=== PATIENT | female | born 1985 | race Caucasian/White ===

== ENCOUNTER 2022-08-03 14:27 | Inpatient (IN) | payer OTHER ==
[~2022-08-03] VITALS: Ht 160 cm; Wt 82.6 kg
[2022-08-04] MEDS ORDERED: NITROFURANTOIN100 M1 (01:53)
--- NOTE | 2022-08-04 10:38 | PR ---
[facility] [address] [place], [place] [address] Signed Progress Notes IP Datetime Report Generated by CPN: 08/04/2022 10:38 PROGRESS NOTES: [id number] Impression: Normal Progression of Labor Procedures: Artificial ROM Plan: Continue Present Management; Anticipate Vaginal Delivery VITAL SIGNS: [id number] Vital Signs: Reviewed; Within Normal Limits EXAM: [id number] Dilatation: 3.0 Effacement: 20 Station: -3 Contractions: irregular MEMBRANES: [id number] Membranes Status: Ruptured Comments: Contractions beginning to get stronger and more regular. would like Epidural later. FETUS A: [id number] FHR Baseline: 130 Variability: Moderate 6-25bpm Accelerations: 15X15 Presentation: Vertex FETUS B: [id number] Signing Physician: Gino Daniels MD Copies: ~ *Electronically Signed* 08/04/22 [facility] GINO DANIELS MD PATIENT NAME: TAMIKO CONTRERAS PROGRESS NOTE DATE OF : 85 PHYSICIAN: GINO DANIELS MD RPT #: [id number] REPORT IS CONFIDENTIAL AND NOT TO BE RELEASED WITHOUT AUTHORIZATION
--- NOTE | 2022-08-04 17:59 | PR ---
[facility] [address] [place], [place] [address] Signed Progress Notes IP Datetime Report Generated by CPN: 08/04/2022 17:59 PROGRESS NOTES: [id number] Impression: Arrest of Dilatation/Descent Procedures: Intrauterine Pressure Catheter Plan: Augmentation; Anticipate Vaginal Delivery VITAL SIGNS: [id number] Vital Signs: Reviewed; Within Normal Limits EXAM: [id number] Dilatation: 5.0 Effacement: 50 Station: -2 Contractions: irregular MEMBRANES: [id number] Membranes Status: Ruptured Comments: Slow progress, now comfortable with Epidural and no cervical change in past 1.5 hours. IUPC inserted. Start Pitocin Augmentation. FETUS A: [id number] FHR Baseline: 130 Variability: Moderate 6-25bpm Accelerations: 15X15 Presentation: Vertex FETUS B: [id number] Signing Physician: Gino Daniels MD Copies: ~ *Electronically Signed* 08/04/22 1759 GINO DANIELS MD PATIENT NAME: TAMIKO CONTRERAS PROGRESS NOTE DATE OF : 85 PHYSICIAN: GINO DANIELS MD RPT #: [id number] REPORT IS CONFIDENTIAL AND NOT TO BE RELEASED WITHOUT AUTHORIZATION
--- NOTE | 2022-08-04 20:04 | PR ---
[facility] [address] [place], [place] [address] Signed Progress Notes IP Datetime Report Generated by CPN: 08/04/2022 20:04 PROGRESS NOTES: [id number] Impression: Arrest of Dilatation/Descent Other Impressions: Slow Progress Procedures: Intrauterine Pressure Catheter Plan: Continue Present Management; Augmentation VITAL SIGNS: [id number] Vital Signs: Reviewed; Within Normal Limits EXAM: [id number] Dilatation: 5.0 Effacement: 50 Station: -2 Contractions: irregular MEMBRANES: [id number] Membranes Status: Ruptured Comments: Comfortable with Epidural. Contractions still not close enough together; will continue to increase Pitocin to get good pattern. Try rotating more to side to help fetus turn (probably posterior) FETUS A: [id number] FHR Baseline: 130 Variability: Moderate 6-25bpm Accelerations: 15X15 Presentation: Vertex FETUS B: [id number] Signing Physician: Gino Daniels MD Copies: ~ *Electronically Signed* 08/04/222003 GINO DANIELS MD PATIENT NAME: TAMIKO CONTRERAS PROGRESS NOTE DATE OF : 85 PHYSICIAN: GINO DANIELS MD RPT #: [id number] REPORT IS CONFIDENTIAL AND NOT TO BE RELEASED WITHOUT AUTHORIZATION
--- NOTE | 2022-08-05 11:27 | PR ---
[facility] [address] [place] [address] Signed PP Progress Notes Datetime Report Generated by CPN: 08/05/2022 11:27 SUBJECTIVE: [id number] Pain: Within Normal Limits Nausea/Vomiting: Denies Vital Signs: [id number] Vital Signs: Reviewed; Within Normal Limits Notable Details: PP Hgb/Hct = 11.0/34.0 Abdomen/Uterus: Normal Lochia: Normal Extremities: Normal IMPRESSION/PLAN/PROCEDURES: [id number] Impression: Normal Progression Plan: Continue Present Management Procedures: None Progress Notes: Doing well, without complaint, tolerating food well. Signing Physician: Gino Daniels MD Copies: ~ *Electronically Signed* 08/05/22 1127 GINO DANIELS MD PATIENT NAME: TAMIKO CONTRERAS PROGRESS NOTE DATE OF : 85 PHYSICIAN: GINO DANIELS MD RPT #: [id number] REPORT IS CONFIDENTIAL AND NOT TO BE RELEASED WITHOUT AUTHORIZATION
--- NOTE | 2022-08-06 10:21 | PR ---
[facility] [address] [place] [address] Signed PP Progress Notes Datetime Report Generated by CPN: 08/06/2022 10:21 SUBJECTIVE: [id number] Pain: Within Normal Limits Nausea/Vomiting: Denies Vital Signs: [id number] Vital Signs: Reviewed; Within Normal Limits Notable Details: PP Hgb/Hct = 11.0/34.0 Abdomen/Uterus: Normal Lochia: Normal Extremities: Normal IMPRESSION/PLAN/PROCEDURES: [id number] Impression: Normal Progression Plan: Discharge Procedures: None Progress Notes: Doing well, without complaint, ready to go home. Signing Physician: Gino Daniels MD Copies: ~ *Electronically Signed* 08/06/22 1021 GINO DANIELS MD PATIENT NAME: TAMIKO CONTRERAS PROGRESS NOTE DATE OF : 85 PHYSICIAN: GINO DANIELS MD RPT #: [id number] REPORT IS CONFIDENTIAL AND NOT TO BE RELEASED WITHOUT AUTHORIZATION
== END 2022-08-06 11:55 | disposition home or self-care (01) | DRG 806 ==
LOC: FBC 08-04 00:26
PROVIDERS: ADMIT General Practice; ATTEND General Practice
PROC: 10E0XZZ Delivery of Products of Conception, External Approach (ICD-10-PCS; principal; 2022-08-04)
PROC: 3E0P7VZ Introduction of Hormone into Female Reproductive, Via Natural or Artificial Opening (ICD-10-PCS; 2022-08-04)
PROC: 10907ZC Drainage of Amniotic Fluid, Therapeutic from Products of Conception, Via Natural or Artificial Opening (ICD-10-PCS; 2022-08-04)
PROC: 00HU33Z Insertion of Infusion Device into Spinal Canal, Percutaneous Approach (ICD-10-PCS; 2022-08-04)
PROC: 3E0R3BZ Introduction of Anesthetic Agent into Spinal Canal, Percutaneous Approach (ICD-10-PCS; 2022-08-04)
PROC: 10H07YZ Insertion of Other Device into Products of Conception, Via Natural or Artificial Opening (ICD-10-PCS; 2022-08-04)
DX: O48.0 Post-term pregnancy (principal); O98.52 Other viral diseases complicating childbirth; Z37.0 Single live birth; Z3A.40 40 weeks gestation of pregnancy; Z67.40 Type O blood, Rh positive; B00.9 Herpesviral infection, unspecified
CPT/HCPCS: 01960; 36415; 85027; 86850; 86900; 86901; A9270; J2590; J2795